=== PATIENT | male | born 1985 | race American Indian/Alaskan Native ===

== ENCOUNTER 2023-08-24 12:00 | Emergency (ER) | payer BC ==
[2023-08-24 14:21] LABS: CORONAVIRUS COVID-19 NAA NEGATIVE (NEGATIVE); INFLUENZA A NAA NEGATIVE (NEGATIVE); INFLUENZA B NAA NEGATIVE (NEGATIVE); RESPIRATORY SYNCYTIAL VIR NAA NEGATIVE (NEGATIVE)
[2023-08-24] MEDS: Benzonatate 100 MG Cap PO STA (15:10)
[2023-08-24] MEDS: predniSONE 10 MG Tab PO STA (15:10)
== END 2023-08-24 15:21 | disposition home or self-care (01) ==
LOC: MW.ED 12:00
DX: J40 Bronchitis, not specified as acute or chronic (principal); J01.90 Acute sinusitis, unspecified; Z79.899 Other long term (current) drug therapy
CPT/HCPCS: 0241U; 71046; 99283; A9270